=== PATIENT | female | born 1955 | race African-American/Black ===

== ENCOUNTER 2016-11-01 17:52 | Emergency (ER) | payer MEDICARE, MEDICAID ==
[~2016-11-01] VITALS: Ht 165.1 cm; Wt 127.0 kg
[~2016-11-01 17:52] MED LIST: ALBUTEROL SULF8.5 GM INH; FUROSEMIDE20 M1 PO; FUROSEMIDE40 MG ORAL; GLUCOPHAGE850 MG PO; GLUCOTROL10 MG PO; HYDROCODON-ACE1 EA16 ORAL; LANTUS SOL100 UNIT/1 SUBQ; LANTUS5 UNITS SUBQ; LASIX40 MG ORAL; LOSARTAN POTASS50 MG ORAL; LOSARTAN-HCTZ1 EAC2 ORAL; METOPROLOL TART25 MG PO; MOTRIN800 MG PO; NAPROSYN500 M1 ORAL; NORCO 5-325 TA1 EACH ORAL; PLAVIX75 MG ORAL; SIMVASTATIN40 MG ORAL; SIMVASTATIN40 MG PO; TRAMADOL HCL50 MG PO; VALIUM5 MG ORAL; VICODIN 5-5001 EACH PO
[2016-11-01 18:29] VITALS: BP 127/73
--- NOTE | 2016-11-01 18:53 | Emergency Room Report ---
History of Present Illness General Chief Complaint: Skin Rash/Abscess Source: Patient Present Illness HPI 61-year-old female presents to emergency Department complaining of painful swollen lump to the anterior left sierra times one day. Patient denies collar trauma. Patient denies erythema, increased or she palpation, bruising. Patient states she has a history of intermittent lower extremity edema and used to take Lasix daily. Patient reports bilateral knee meniscal injuries and has had left knee meniscal surgery approximately 3 months ago. Patient states previously she had significant swelling in the left knee however it is slowly dissipated. She denies claudication, estrogen replacement therapy or recent travel. Patient denies posterior calf pain or pain with walking. Patient states pain is 8/10 in severity upon palpation of the lump on the anterior sierra. pt. also reports chronic left leg pain x 6 months described as an electrical shooting pain exacerbated only with lying flat, and relieved with sitting up. pt. denies back injury, or recent spinal procedures, denies incontinence or hx of neoplastic disease. denies N/V/F/C Denies numbness tingling or loss of sensation or gross motor movements of the extremities, incontinence of bowel or bladder. Denies CP, Palpitations, LOC, AMS, dizziness, Changes in Vision, Sensation, paresthesias, or a sudden severe headache. Allergies: Coded Allergies: CODEINE (Verified Allergy, Severe, 08/28/12) Patient History Past Medical History: see triage record Past Surgical History: none Pertinent Family History: none Now: No Immunizations: UTD Reviewed Nursing Documentation: PMH: Agreed, PSxH: Agreed Nursing Documentation-PM Past Medical History: No History, Except For Hx Hypertension: Yes Hx Diabetes: Yes Hx Cancer: No Hx Gastrointestinal Problems: No Hx Neurological Problems: Yes - Neruopathy Hx Transient Ischemic Attacks: Yes Hx Weakness: Yes - back pain Review of Systems All Other Systems: negative except mentioned in HPI Physical Exam Vital Signs Date Time Temp Pulse Resp B/P Pulse Ox O2 Delivery O2 Flow Rate FiO2 11/01/16 18:19 97.3 79 16 127/73 99 Room Air Sp02 EP Interpretation: reviewed, normal General Appearance: no apparent distress, alert, GCS 15, non-toxic Head: normocephalic, atraumatic Eyes: bilateral eye PERRL, bilateral eye normal inspection ENT: hearing grossly normal, normal pharynx, no angioedema, normal voice Neck: full range of motion, supple/symm/no masses Respiratory: chest non-tender, lungs clear, normal breath sounds, speaking full sentences Cardiovascular #1: regular rate, rhythm, no edema Cardiovascular #2: 2+ carotid (R), 2+ carotid (L), 2+ radial (R), 2+ radial (L) , 2+ dorsalis pedis (R), 2+ dorsalis pedis (L) Gastrointestinal: normal bowel sounds, non tender, soft, no guarding, no rebound Rectal: deferred Genitourinary: normal inspection, no CVA tenderness Musculoskeletal: back normal, gait/station normal, normal range of motion, non- tender, no calf tenderness Neurologic: alert, oriented x3, responsive, motor strength/tone normal, sensory intact, speech normal Psychiatric: judgement/insight normal, memory normal, mood/affect normal, no suicidal/homicidal ideation Reflexes: 4+ bicep (R), 4+ bicep (L), 4+ tricep (R), 4+ tricep (L), 4+ knee (R) , 4+ knee (L) Skin: normal color, no rash, warm/dry, well hydrated Lymphatic: no adenopathy Procedures Splinting Splinting : Consent: Verbal Location: left knee/sierra Pre-Made Type: RAS wrap Pre-Proc Neuro Vasc Exam: normal Post-Proc Neuro Vasc Exam: normal Patient Tolerated: Well Complications: None Medical Decision Making PA Attestation Dr. Beckham is my supervising Physician whom patient management has been discussed with. Diagnostic Impression: Primary Impression: Swelling of left lower extremity Additional Impression: Chronic pain of left lower extremity ER Course Pt. presents to the ED c/o swollen localized lump on the upper anterior left sierra x 1 day denies trauma. pt. also reports chronic left leg pain x 6 months described as an electrical shooting pain exacerbated only with lying flat, and relieved with sitting up. pt. denies back injury, or recent spinal procedures, denies incontinence or hx of neoplastic disease. Ddx considered but are not limited to Fracture, dislocation, contusion, Sprain/ Strain/Spasm, lipoma, abscess, DVT, insect bite. Vital signs: are WNL, pt. is afebrile H&PE are most consistent with soft tissue swelling localized of the left LE, and chronic sciatica type pain x 6 months. ORDERS: - none required at this time no bony ttp, no hx of fall/trauma, no evidence of infection, and no evidence of DVT. ED INTERVENTIONS: -Ars wrap applied to the left knee/sshin by airframe technician. Pt. remains neurovascularly intact. - D/w pt. to follow up as outpatient with PCP if conservative treatment does not provide relief. d/w pt . concerning symptoms that would indicate prompt return. DISCHARGE: At this time pt. is stable for d/c to home. Will provide printed patient care instructions, and any necessary prescriptions. Care plan and follow up instructions have been discussed with the patient prior to discharge. Last Vital Signs Date Time Temp Pulse Resp B/P Pulse Ox O2 Delivery O2 Flow Rate FiO2 11/01/16 18:29 97.3 78 16 127/73 99 Room Air Disposition: HOME, SELF-CARE Condition: Stable Scripts Furosemide* (LASIX*) 20 Mg Tablet 20 MG ORAL DAILY, #10 TAB Prov: Lauren Mir 11/01/16 Gabapentin* (GABAPENTIN*) 300 Mg Capsule 300 MG ORAL THREE TIMES A DAY, #90 CAP 0 Refills Prov: Lauren Mir 11/01/16 Acetaminophen* (TYLENOL EXTRA STRENGTH*) 500 Mg Tablet 500 MG ORAL Q6H, #30 TAB 0 Refills Prov: Lauren Mir 11/01/16 Additional Instructions: Take medications as directed. Follow up with PCP in 3-5 days It has been determined that you are stable for outpatient evaluation of your symptoms. And followup with primary care or seafood specialist for further evaluation of your left leg pain and left anterior sierra swelling. Return sooner to ED if new symptoms occur, or current symptoms become worse. Lauren Mir Nov 01, 2016 18:53
[2016-11-01 19:08] VITALS: BP 132/73
[2016-11-01] MEDS ORDERED: Acetaminophen 500mg (ES) tab ORAL ONE (19:30)
[2016-11-01] MEDS ORDERED: FUROSEMIDE20 M1 ORAL (19:34)
[2016-11-01] MEDS ORDERED: TYLENOL EXTRA500 MG ORAL (19:34)
[2016-11-01] MEDS ORDERED: GABAPENTIN300 MG ORAL (19:34)
[2016-11-01 19:45] VITALS: BP 127/73
== END 2016-11-01 19:45 | disposition home or self-care (01) ==
LOC: EMR 19:01
DX: M79.89 Other specified soft tissue disorders (principal); G89.29 Other chronic pain; M79.605 Pain in left leg; I10 Essential (primary) hypertension; E11.9 Type 2 diabetes mellitus without complications; Z86.73 Personal history of transient ischemic attack (TIA), and cerebral infarction without residual deficits; Z88.6 Allergy status to analgesic agent
CPT/HCPCS: 99282

== ENCOUNTER 2019-11-24 20:47 | Emergency (ER) | payer MEDICARE, OTHER ==
[~2019-11-24] VITALS: Ht 165.1 cm; Wt 145.1 kg
[~2019-11-24 20:47] MED LIST changes: +FUROSEMIDE20 M1 ORAL; +GABAPENTIN300 MG ORAL; +TYLENOL EXTRA500 MG ORAL
--- NOTE | 2019-11-24 21:35 | NUR ---
ED Nurse Note: Recieved pt from home, BIBA with c/o severe pain to back of neck, pt has large abcess like wound to back of neck, pus filled and appears to be ready to drain, pt has pain at 8/10, states has frequent abcesses since with hx of many I and D's done, pt denies fevers, vomiting or any other complaints.
[2019-11-24] MEDS ORDERED: CEPHALEXIN500 MG ORAL (22:42)
[2019-11-24] MEDS ORDERED: BACTRIM DS TAB1 EAC1 ORAL (22:42)
[2019-11-24] MEDS ORDERED: MUPIROCIN22 GM TOPIC (22:42)
--- NOTE | 2019-11-24 22:42 | Emergency Room Report ---
History of Present Illness General Chief Complaint: Vomiting Source: Patient Present Illness HPI This a 64-year-old female with a history of recurrent abscesses, diabetes and chronic pain. She presents with chief complaint of neck pain. She has an abscess that been there for couple days. Now started draining. Pain is 8 out of 10. Worse with movement. No fever chills. She also think that she may have a urinary tract infection. She says she has some back pain. No dysuria frequency. No hematuria. History of UTI in the past. [place] nauseous but no vomiting. No diarrhea. Allergies: Coded Allergies: CODEINE (Verified Allergy, Severe, 08/28/12) Patient History Past Medical History: see triage record, old chart reviewed, DM Past Surgical History: other Pertinent Family History: none Social History: Denies: smoking Last Menstrual Period: NA Now: No : 3 Para: 2 Immunizations: other Reviewed Nursing Documentation: PMH: Agreed; PSxH: Agreed Nursing Documentation-PMH Hx Hypertension: Yes Hx Diabetes: Yes Hx Cancer: No Hx Gastrointestinal Problems: Yes Hx Neurological Problems: Yes - POLYNEUROPATHY Hx Cerebrovascular Accident: Yes - 2016 Hx Transient Ischemic Attacks: Yes Hx Weakness: Yes - back pain Review of Systems Eye: Denies: eye pain, blurred vision ENT: Denies: ear pain, nose congestion, throat swelling Respiratory: Denies: cough, shortness of breath Cardiovascular: Denies: chest pain, palpitations Gastrointestinal: Reports: nausea; Denies: abdominal pain, diarrhea, vomiting Musculoskeletal: Denies: back pain, joint pain Skin: Reports: lesions; Denies: rash Neurological: Denies: headache, numbness Endocrine: Denies: increased thirst, increased urine Hematologic/Lymphatic: Denies: easy bruising All Other Systems: negative except mentioned in HPI Physical Exam Vital Signs Date Time Temp Pulse Resp B/P (MAP) Pulse Ox O2 Delivery O2 Flow Rate FiO2 11/24/19 20:42 98.2 112 18 118/81 (93) 98 Room Air Vitals normal Sp02 EP Interpretation: reviewed, normal General Appearance: well appearing, no apparent distress, alert, obese Head: normocephalic, atraumatic Eyes: bilateral eye PERRL, bilateral eye EOMI ENT: hearing grossly normal, normal pharynx Neck: full range of motion, supple, no meningismus, tender - Just left of midline of the back of her neck there is an indurated area of meter. There is central drainage. Tender to palpation. Respiratory: chest non-tender, lungs clear, normal breath sounds Cardiovascular #1: regular rate, rhythm, no murmur Gastrointestinal: normal bowel sounds, non tender, no mass, no organomegaly, no bruit, non-distended Musculoskeletal: back normal, normal range of motion, gait/station normal Psychiatric: mood/affect normal Procedures Incision and Drainage Incision and Drainage : Consent: Verbal Site: Neck Blade Size: 11 I & D Procedure: betadine prep Wound Location: neck Anesthesia: 1% Lidocaine Volume Anesthetic (ccs): 5 Patient Tolerated: Well Complications: None Progress Area cleaned with Betadine first and then local anesthetic with lidocaine. I made an elliptical incision of 2 cm. Purulent discharge was expressed. There was also cottage cheesy material expressed. I remove as much of the cord as possible. Patient tolerated suture without any problem. Medical Decision Making Diagnostic Impression: Primary Impression: Infected sebaceous cyst ER Course Patient with a infected sebaceous cyst. I&D. She may have a urinary tract infection but unable to give a urine sample now. Her previous urine cultures been negative. Will cover with Keflex and Bactrim. Will discharge home. I will send her home by ambulance because she does not have her wheelchair and she has to go up 2 steps. Last Vital Signs Date Time Temp Pulse Resp B/P (MAP) Pulse Ox O2 Delivery O2 Flow Rate FiO2 11/24/19 20:42 98.2 112 18 118/81 (93) 98 Room Air Status: improved Disposition: HOME, SELF-CARE Condition: Stable Scripts Mupirocin* (MUPIROCIN*) 22 Gm Oint...g. 1 APPLIC TOPIC THREE TIMES A DAY, #22 GM Prov: Ike Foy MD 11/24/19 Cephalexin* (KEFLEX*) 500 Mg Capsule 500 MG ORAL TID, #21 CAP Prov: Ike Foy MD 11/24/19 Trimethoprim/Sulfamethoxazole 160/800* (BACTRIM DS TABLET*) 1 Each Tablet 1 TAB ORAL Q12H, #14 TAB 0 Refills Prov: Ike Foy MD 11/24/19 Additional Instructions: Keep wound clean. Clean first with hydroperoxide and apply antibiotic ointment. Follow-up with your doctor in 3 to 5 days for recheck. Return if worse. Ike Foy MD Nov 24, 2019 22:42
[2019-11-24] MEDS ORDERED: HYDROcodone/Acetamin 5/325 tab ORAL ONE (22:45)
[2019-11-24] MEDS ORDERED: Bactrim-DS 1 tab ORAL ONE (22:45)
[2019-11-24] MEDS ORDERED: Cephalexin 500mg cap ORAL ONE (22:45)
[2019-11-24] MEDS ORDERED: HYDROmorphone 1mg/ml Carpuject IM ONE (23:00)
[2019-11-24 23:20] VITALS: BP 146/74
[2019-11-24 23:35] VITALS: BP 146/74
--- NOTE | 2019-11-24 23:35 | NUR ---
ER DISCHARGE NOTE: Patient is cleared to be discharged per ERMD, pt is aox4, on room air, with stable vital signs. pt was given dc and prescription instructions, pt was able to verbalize understanding, pt id band and iv site removed without complications. pt is able to ambulate with steady gait. pt took all belongings. pt had area drained by MD, tolerated well, pt given pain meds which states are effective, pt also given gauze and supplies needed for dressing changes due to immobility and access to get what she needs, also reviewed with pt s/s to monitor for and importance of completing all oral antibiotics, pt left via ambulance transport, [facility], rig#[id number], report given to local owner operator truck driver - anders Dumas noted during pt transport.
== END 2019-11-24 23:35 | disposition home or self-care (01) ==
LOC: EDBD 20:47 → EMR 23:30
DX: L72.3 Sebaceous cyst (principal); I10 Essential (primary) hypertension; E11.42 Type 2 diabetes mellitus with diabetic polyneuropathy; Z88.6 Allergy status to analgesic agent; Z86.73 Personal history of transient ischemic attack (TIA), and cerebral infarction without residual deficits
CPT/HCPCS: 10060; 96372; 99283; J1170